=== PATIENT | male | born 1945 | race Caucasian/White ===

== ENCOUNTER 2019-09-18 01:46 | Inpatient (IN) | payer OTHER, MEDICARE ==
[~2019-09-18] VITALS: Ht 177.8 cm; Wt 57.7 kg
[~2019-09-18 01:46] MED LIST: ASPIRIN/DIPYRIDAMOLE PO; Aggrenox Capsu1 EACH PO; CLON1 PO; CYAN1000I IM; DIPATRL PO; Entocort EC 3 mg3 MG PO; FISH OIL + D31 EACH PO; GABA100 PO; HYDCHL25 PO; LOSARTAN-HCTZ1 EAC1 PO; Lomotil Tablet1 EACH PO; Lopressor 25 mg25 MG PO; MAGOXI400 PO; METO25ER PO; NORT25 PO; Omeprazole20 M1 PO; Prevalite Pac4 G/PKT PO; Questran4 GM PO
[2019-09-18 04:03] LABS: Mean Corpuscular HGB 27.1 pg (26.0-34.0); Mean Corpuscular HGB Conc 33.3 g/dL (31.5-36.5); Mean Corpuscular Volume 81 fL (80-100); Mean Platelet Volume 9.9 fL (9.1-12.4); Platelet Count 85 K/mm3 (150-400); RDW Coefficient Variation 19.2 % (11.7-14.2); RDW Standard Deviation 56.5 fL (35.1-46.3); Red Blood Cell Count 3.69 M/mm3 (4.30-5.90); White Blood Cell Count 1.84 K/mm3 (4.00-11.30)
[2019-09-18 04:21] LABS: Alanine Aminotransfer (ALT/SGP 25 U/L (12-78); Albumin/Globulin Ratio 0.7 (0.8-1.8); Alk Phos 105 U/L (50-136); Anion Gap 8 mmol/L (6-16); Aspartate Aminotrans (AST/SGOT 17 U/L (12-37); Bilirubin, Total 0.3 mg/dL (0.1-1.0); Blood Urea Nitrogen 16 mg/dL (8-24); Bun/Creatinine Ratio 20.4 (12.0-20.0); CO2, Blood 23 mmol/L (21-32); Calcium, Blood 8.6 mg/dL (8.5-10.1); Chloride, Blood 102 mmol/L (98-108); Creatinine, Blood 0.79 mg/dL (0.60-1.20); Globulin, Blood 4.1 g/dL (2.2-4.0); Glomerular Filtration Rate >60 (60-); Glucose, Blood 103 mg/dL (70-99); Magnesium, Blood 1.2 mg/dL (1.6-2.4); Potassium, Blood 3.4 mmol/L (3.5-5.5); Sodium, Blood 133 mmol/L (136-145); Total Protein, Blood 7.1 g/dL (6.4-8.2); Troponin I <0.015 ng/mL (0.000-0.040)
[2019-09-18 04:27] LABS: BAND PERCENT MAN 2 % (0-8); BASOPHILS ABSOLUTE MAN 0.01 K/mm3 (0.00-0.23); BASOPHILS PERCENT MAN 1 % (0-2); EOSINOPHILS PERCENT MAN 0 % (0-6); LYMPHOCYTES % ATYPICAL MANUAL 4 % (0-0); LYMPHOCYTES ABSOLUTE MAN 1.52 K/mm3 (0.84-5.20); LYMPHOCYTES PERCENT MAN 79 % (21-46); MONOCYTES ABSOLUTE MAN 0.16 K/mm3 (0.16-1.47); MONOCYTES PERCENT MAN 9 % (4-13); NEUTROPHILS ABSOLUTE MAN 0.12 K/mm3 (1.96-9.15); SEG NEUTROPHILS PERCENT MAN 5 % (41-73); TOTAL CELLS COUNTED 100
--- NOTE | 2019-09-18 10:44 | NUR ---
RECEIEVED REPORT FROM MARYBETH CLEMONS RN, AT 0855. PATIENT ARRIVE TO ROOM 335 AT 0910 BY LYLARWES AND TRANSFERED WITH ONE ASSIST TO HOSPITAL BED. ADMISSION ASSESSMENT COMPLETED ALONG WITH THE MED REQ WITH THE ASSISTANCE OF THE PATIENT. MEDS UPDATED AND NOTIFIED DR MAYFIELD OF CHANGES PER PATIENT. ORDER TO CHANGE MEDICATIONS TO EMAR TO REFLECT PATIENTS MED REQ GIVEN. PATIENT SITUATED IN ROOM RESTING. IV POTASSIUM AND MAGNESIUM INFUSING AT THIS TIME. WILL CONTINUE TO MONITOR.
--- NOTE | 2019-09-18 15:39 | NUR ---
SHIFT SUMMARY PATIENT HAS BEEN PLEASANT AND COOPERATIVE. INFUSED WITH MAGNESIUM AND POTASSIUM UPON ARRIVAL TO THE FLOOR PER EMAR. HAS COMPLAINED OF PAIN TWICE WITH EFFECTIVE RESULTS FROM REQUESTED PAIN MEDICATION. FEVER OF 101.9 NOTED AT AFTERNOON VITALS; OFFERED PATIENT TYLENOL AND HE WOULD ONLY TAKE 325MG OPPOSED TO THE FULL DOSE OF 650MG. WILL RECHECK TEMP. PATIENT AMBULATES WITH STEADY GAIT, NEEDS SOME ASSISTANCE WITH IV POLE. WILL CONTINUE TO MONITOR AND PROVIDE CARE NEEDED.
--- NOTE | 2019-09-18 17:40 | NUR ---
RECHECKED PATIENT TEMP A FEW TIMES. IT HAS COME DOWN TO 99.3
--- NOTE | 2019-09-19 04:06 | NUR ---
SHIFT SUMMARY: 74 Y/O MALE RESTED COMFORTABLY ALL SHIFT, C/O GENERALIZED PAIN RATED 6/10 WITH DILAUDID 0.6MG IVP GIVEN X 4 WITH RELIEF FELT, ALERT AND ORIENTED X 4, DENIES NAUSEA, NO STOOLS NOTED, VOIDING CLEAR YELLOW FLUID, HAPPY AND COOPERATIVE WITH STAFF, NEUTROPENIC ISOLATION MAINTAINED, BED LOW POSITION WITH CALL LIGHT AT SIDE.
[2019-09-19 05:12] LABS: BASOPHILS PERCENT AUTO 0 % (0-2); EOSINOPHILS ABSOLUTE AUTO 0.01 K/mm3 (0.00-0.68); EOSINOPHILS PERCENT AUTO 1 % (0-6); Hematocrit 25.3 % (37.0-53.0); Hemoglobin 8.4 g/dL (13.5-17.5); IMMATURE GRAN ABSOLUTE AUTO 0.04 K/mm3 (0.00-0.10); IMMATURE GRAN PERCENT AUTO 2 % (0-1); LYMPHOCYTES ABSOLUTE AUTO 1.21 K/mm3 (0.84-5.20); LYMPHOCYTES PERCENT AUTO 62 % (21-46); MONOCYTES ABSOLUTE AUTO 0.54 K/mm3 (0.16-1.47); MONOCYTES PERCENT AUTO 28 % (4-13); Mean Corpuscular HGB 27.3 pg (26.0-34.0); Mean Corpuscular HGB Conc 33.2 g/dL (31.5-36.5); Mean Corpuscular Volume 82 fL (80-100); Mean Platelet Volume 9.9 fL (9.1-12.4); NEUTROPHILS ABSOLUTE AUTO 0.16 K/mm3 (1.96-9.15); NEUTROPHILS PERCENT AUTO 8 % (41-73); NRBC ABSOLUTE 0.03 K/mm3 (0.00-0.02); NRBC Auto 1.5 /100 WBC (0.0-0.2); Platelet Count 134 K/mm3 (150-400); RDW Coefficient Variation 19.9 % (11.7-14.2); RDW Standard Deviation 59.2 fL (35.1-46.3); Red Blood Cell Count 3.08 M/mm3 (4.30-5.90); White Blood Cell Count 1.96 K/mm3 (4.00-11.30)
[2019-09-19 05:38] LABS: Anion Gap 7 mmol/L (6-16); Blood Urea Nitrogen 7 mg/dL (8-24); Bun/Creatinine Ratio 9.8 (12.0-20.0); CO2, Blood 26 mmol/L (21-32); Calcium, Blood 8.2 mg/dL (8.5-10.1); Chloride, Blood 103 mmol/L (98-108); Creatinine, Blood 0.72 mg/dL (0.60-1.20); Glomerular Filtration Rate >60 (60-); Glucose, Blood 90 mg/dL (70-99); Magnesium, Blood 1.4 mg/dL (1.6-2.4); Potassium, Blood 3.7 mmol/L (3.5-5.5); Sodium, Blood 136 mmol/L (136-145)
--- NOTE | 2019-09-19 14:43 | NUR ---
1330 Visit Initial Visit: Palliative Care Consult for AD/POLST and Symptom Management. Pt is A&O and reports 7/10 pain in his abdomen and legs. He reports pain in his abdomen is sharp and intermittent and pain in his legs/feet are constant and states they feel like they are /crampy feeling. Engaged in therapeutic conversation and discussed his cancer diagnosis. Pt reports Dr Mak visited earlier this AM. Pt reports feeling of having more questions. He reports that he is unsure if he wants to continue with any treatments and have surgery. Offered to contact Dr Mak and this RN can relay plan. Pt is agreeable. Called and spoke with Dr Mak and he reports plan is for Pt to continue with chemotherapy then have curative surgery by removing bladder. Relayed information back to Pt. Listened as Pt expresses uncertainy of this plan. Listened as Pt discussed his qualitity of life and states "I have a lot to think about". Discussed hospice as an option he chooses to not pursue treatment and surgery. Suggested he continued conversation with Dr River when he is discharged from hospital. Pt is agreeable. Discussed pain management and the frequent use of IV dilaudid. Pt is agreeable in taking something that may last longer. Discussed POLST with Pt. Educated on each section to complete. Educated on life sustaining measures including risk factors. Pt reports he will discuss with his before completing. No other concerns reported at this time. Spoke with bedside nurse Sheryl and discussed case. Called and spoke with Dr Blakely. Placed order for oxycodone 5mg tab PO Q 4 hours PRN, and Gabapentin 200mg TID per V/O from Dr Blakely. Palliative Care will remain available.
--- NOTE | 2019-09-19 16:22 | NUR ---
SHIFT SUMMARY PATIENT HAS BEEN HAVING BACK, ABDOMENAL, AND BLE PAIN ON AND OFF T/O THE SHIFT. IV PAIN MEDICATION GIVEN ON REQUEST WITH MODERATE RESULTS. DR MAYFIELD DISCONTINUED THE IV DILAUDID AND ORDERED THE PATIENT SCHEDULED GABAPENTIN AND PRN OXYCODONE TO WHICH HE REFUSED BOTH STATING THEY DON'T HELP HIS PAIN. PATIENT CONTINUES ON IV ABX AND IV MAGNESIUM WITHOUT S/SX ADVERSE REACTIONS NOTED OR REPORTED. PATIENT REMAINS IN ROOM ENTIRE SHIFT AND RESTS HOWEVER AMBULATES TO AND FROM THE BATHROOM NEEDED. THERE HAVE BEEN NO ACUTE CHANGES TO REPORT ON THIS SHIFT. WILL CONTINUE TO MONITOR AND PROVIDE CARE NEEDED.
[2019-09-20 05:14] LABS: Hematocrit 25.3 % (37.0-53.0); Hemoglobin 8.3 g/dL (13.5-17.5); Mean Corpuscular HGB 27.4 pg (26.0-34.0); Mean Corpuscular HGB Conc 32.8 g/dL (31.5-36.5); Mean Corpuscular Volume 84 fL (80-100); Mean Platelet Volume 10.3 fL (9.1-12.4); NRBC ABSOLUTE 0.07 K/mm3 (0.00-0.02); NRBC Auto 1.2 /100 WBC (0.0-0.2); Platelet Count 201 K/mm3 (150-400); RDW Coefficient Variation 20.7 % (11.7-14.2); RDW Standard Deviation 61.8 fL (35.1-46.3); Red Blood Cell Count 3.03 M/mm3 (4.30-5.90); White Blood Cell Count 6.08 K/mm3 (4.00-11.30)
[2019-09-20 05:44] LABS: BAND PERCENT MAN 15 % (0-8); BASOPHILS PERCENT MAN 0 % (0-2); EOSINOPHILS PERCENT MAN 0 % (0-6); LYMPHOCYTES ABSOLUTE MAN 2.12 K/mm3 (0.84-5.20); LYMPHOCYTES PERCENT MAN 35 % (21-46); METAMYELOCYTE ABSOLUTE MAN 0.24 K/mm3 (0.00-0.00); METAMYELOCYTE PERCENT MAN 4 % (0-0); MONOCYTES ABSOLUTE MAN 1.45 K/mm3 (0.16-1.47); MONOCYTES PERCENT MAN 24 % (4-13); MYELOCYTE ABSOLUTE MAN 0.12 K/mm3 (0.00-0.00); MYELOCYTE PERCENT MAN 2 % (0-0); NEUTROPHILS ABSOLUTE MAN 2.12 K/mm3 (1.96-9.15); SEG NEUTROPHILS PERCENT MAN 20 % (41-73); TOTAL CELLS COUNTED 100
--- NOTE | 2019-09-20 06:24 | NUR ---
SHIFT SUMMARY PATIENT UPSET THAT PAIN MEDICATION WAS CHANGED WITHOUT THE PHYSICIAN SPEAKING TO HIM ABOUT THE CHANGES. PATIENT APPEARS ANXIOUS BUT REFUSES PRESCRIBED KLONOPIN AFTER TAKING OXYCODONE BECAUSE HE IS CONCERNED ABOUT HIS RESPIRATIONS. SPOKE TO RN SURGERY ICU PHYSICIAN ABOUT PATIENTS PAIN NOT BEING CONTROLLED AND RECEIVED ORDER FOR 2 DOSES OF DILAUDID TO GET HIM THROUGH THE NIGHT. PATIENT USES URINAL AND CALLS APPROPRI. WILL CONTINUE TO MONITOR
--- NOTE | 2019-09-20 11:24 | NUR ---
Pt visit this AM. Pt resting in bed upon arrival. He reports 7/10 pain in his lower back. Listened as Pt expresses frustration over pain regimen change. Listened as Pt expresses frustration over his current health and stating everything has been piling up. Pt expresses frustration over [facility]. Validated Pt's concerns. Dr Welsh arrives and discusses plan with Pt. Pt is agreeable with plan and is more understanding of pain regimen change. Pt reports no other concerns at this time. Dr Welsh will also D/C neutropenic precautions and order bowel protocol. Spoke with bedside nurse Gisela and discussed case. Palliative Care will remain available.
--- NOTE | 2019-09-20 16:24 | NUR ---
SHIFT SUMMARY PT CONTINUES TO HAVE LOWER BACK PAIN AND MEDICATING NEEDED PER EMAR. PT'S DIET INCREASED FROM FULL LIQUID TO SOFT FOR DINNER. WILL MONITOR PT'S TOLERANCE OF SOFT DIET. PT HAS HAD NO COMPLAINTS OF NAUSEA. UP INDEPENDENTLY IN ROOM. IVF STOPPED THIS AFTERNOON. PLANS FOR PT TO DISCHARGE TOMORROW. NO ACUTE CHANGES THIS SHIFT. WILL CONTINUE TO MONITOR AND REPORT TO ONCOMING RN. CALL LIGHT IN REACH.
--- NOTE | 2019-09-21 06:21 | NUR ---
SHIFT SUMMARY NO ACUTE EVENTS OVERNIGHT. PATIENT PAIN BEING WELL CONTROLLED BY CURRENT PAIN MED REGIME. PATIENT UP AD DESTINY IN ROOM. VSS. AAOX4. WILL CONTINUE TO MONITOR AND REPORT TO DAYSHIFT.
[2019-09-21] MEDS ORDERED: METR500 PO (12:49)
--- NOTE | 2019-09-21 14:23 | NUR ---
SHIFT SUMMARY PT AWAKE THIS AM, DURING SHIFT REPORT, CONFUSED AND HALLUCINATING IN RM AND OUT TO ROSALES. ASSISTED PT BACK INTO AND REORIENTED. PT A LITTLE ANXIOUS AT START OF SHIFT, WAITING FOR D/C. PT CALMED DOWN WHEN BREAKFAST BROUGHT IN. PT'S TO WELL. DENIED NEEDS. DR WRIGHT TO TO SEE PT. D/C ORDERS PLACED; PT WANTING TO GO HOME. IV SITE D/C'D WNL. D/C INSTRUCTIONS GIVEN; PT REPORTED, "I CAN READ WHEN I GET HOME". PT ANXIOUS TO LEAVE SOON HE COULD. PT ASSISTED OUT TO CAR VIA W/C, BY COMMUNITY HEALTH PROGRAM COORDINATOR.
== END 2019-09-21 17:09 | disposition home or self-care (01) | DRG 392 ==
LOC: ER 01:46 → MEDS 08:14
PROVIDERS: Emergency Medicine; ADMIT Family Medicine
DX: K52.89 Other specified noninfective gastroenteritis and colitis (principal); D61.818 Other pancytopenia; E87.1 Hypo-osmolality and hyponatremia; K50.90 Crohn's disease, unspecified, without complications; C67.9 Malignant neoplasm of bladder, unspecified; E87.6 Hypokalemia; E83.42 Hypomagnesemia; I10 Essential (primary) hypertension; F41.8 Other specified anxiety disorders; F17.290 Nicotine dependence, other tobacco product, uncomplicated; Z92.21 Personal history of antineoplastic chemotherapy; Z88.0 Allergy status to penicillin; Z88.2 Allergy status to sulfonamides; Z88.8 Allergy status to other drugs, medicaments and biological substances; Z79.899 Other long term (current) drug therapy
CPT/HCPCS: 36415; 74176; 80048; 80053; 83690; 83735; 84484; 85025; 93005; 93010; 96365; 96375; 96376; 99285-25; A9270; J0692; J0696; J1170; J1447; J2405; J3475; J3480; J7050; J7120

== ENCOUNTER → 2019-10-04 | Outpatient (CLI) | payer OTHER ==
[~2019-10-04] MED LIST changes: +METR500 PO
[2019-10-04 12:38] LABS: BASOPHILS ABSOLUTE AUTO 0.02 K/mm3 (0.00-0.23); BASOPHILS PERCENT AUTO 0 % (0-2); EOSINOPHILS ABSOLUTE AUTO 0.01 K/mm3 (0.00-0.68); EOSINOPHILS PERCENT AUTO 0 % (0-6); Hematocrit 28.2 % (37.0-53.0); Hemoglobin 9.1 g/dL (13.5-17.5); IMMATURE GRAN ABSOLUTE AUTO 0.05 K/mm3 (0.00-0.10); IMMATURE GRAN PERCENT AUTO 1 % (0-1); LYMPHOCYTES ABSOLUTE AUTO 1.31 K/mm3 (0.84-5.20); LYMPHOCYTES PERCENT AUTO 25 % (21-46); MONOCYTES ABSOLUTE AUTO 0.45 K/mm3 (0.16-1.47); MONOCYTES PERCENT AUTO 8 % (4-13); Mean Corpuscular HGB 28.3 pg (26.0-34.0); Mean Corpuscular HGB Conc 32.3 g/dL (31.5-36.5); Mean Corpuscular Volume 88 fL (80-100); NEUTROPHILS PERCENT AUTO 66 % (41-73); Platelet Count 105 K/mm3 (150-400); RDW Coefficient Variation 22.2 % (11.7-14.2); RDW Standard Deviation 69.6 fL (35.1-46.3); Red Blood Cell Count 3.22 M/mm3 (4.30-5.90); White Blood Cell Count 5.34 K/mm3 (4.00-11.30)
[2019-10-04 12:48] LABS: Alanine Aminotransfer (ALT/SGP 24 U/L (12-78); Albumin, Blood 2.9 g/dL (3.4-5.0); Albumin/Globulin Ratio 0.8 (0.8-1.8); Alk Phos 85 U/L (50-136); Anion Gap 7 mmol/L (6-16); Aspartate Aminotrans (AST/SGOT 24 U/L (12-37); Bilirubin, Total 0.2 mg/dL (0.1-1.0); Blood Urea Nitrogen 16 mg/dL (8-24); Bun/Creatinine Ratio 21.8 (12.0-20.0); CO2, Blood 28 mmol/L (21-32); Calcium, Blood 8.3 mg/dL (8.5-10.1); Chloride, Blood 105 mmol/L (98-108); Creatinine, Blood 0.73 mg/dL (0.60-1.20); Globulin, Blood 3.6 g/dL (2.2-4.0); Glomerular Filtration Rate >60 (60-); Glucose, Blood 133 mg/dL (70-99); Potassium, Blood 3.4 mmol/L (3.5-5.5); Sodium, Blood 140 mmol/L (136-145); Total Protein, Blood 6.5 g/dL (6.4-8.2)
== END | disposition home or self-care (01) ==
LOC: LAB 11:52 → LAB SHORT 11:52
PROVIDERS: Registered Nurse Oncology
DX: C67.9 Malignant neoplasm of bladder, unspecified (principal)
CPT/HCPCS: 80053; 85025

== ENCOUNTER 2020-01-11 06:43 | Day surgery (SDC) | payer OTHER ==
[~2020-01-11] VITALS: Ht 180.3 cm; Wt 63.0 kg
[~2020-01-11 06:43] MED LIST changes: +Anti-Diarrheal2 MG PO; +HYDROCODONE-AC1 EACH PO; +METO25 PO
--- NOTE | 2020-01-11 14:39 | NUR ---
LEFT GROIN SITE SOFT, NONTENDER, AND WITHOUT HEMATOMA. PT HOB HAS BEEN ELAVATED FOR ABOUT 45 MINUTES. PT UP TO BATHROOM, GROIN SITE STABLE. UP AND WALKED IN RECOVERY ROOM, BACK TO BED. SITTING DOWN, GROIN SITE STABLE. RESTED FOR ABOUT 15 MINUTES, STOOD UP TO GET DRESSED. PT STARTED TO C/O PAIN AT GROIN SITE, HEMATOMA NOTED. PRESSURE HELD AT SITE UNTIL SOFT. NOTIFIED.
--- NOTE | 2020-01-11 15:47 | NUR ---
pt groin site soft, nontender, no hematoma noted. up walking in recovery, dressed. site remains stable. pt discharge gone over with him and family, all verbalize understanding of instructions. instructred on how to apply firm pressure if bleeding should occur. saline lock out with catheter intact. pt to private vehicle per escort per w/c.
== END 2020-01-11 15:30 | disposition home or self-care (01) ==
LOC: MHTC 06:43
DX: I70.213 Atherosclerosis of native arteries of extremities with intermittent claudication, bilateral legs (principal); Z88.0 Allergy status to penicillin; Z88.2 Allergy status to sulfonamides; Z88.1 Allergy status to other antibiotic agents; Z88.8 Allergy status to other drugs, medicaments and biological substances
CPT/HCPCS: 37220; 37225; 75625; 75710; 75716; 75774; 76937; 85347; 99152; 99153; C1714; C1725; C1769; C1884; C1887; C1894; C2623; J1200; J1644; J2060; J2250; J3010; J7030; Q9967

== ENCOUNTER 2020-01-24 08:20 | Day surgery (SDC) | payer OTHER ==
[~2020-01-24] VITALS: Ht 180.3 cm; Wt 58.0 kg
--- NOTE | 2020-01-24 15:23 | NUR ---
1500 DR. GRIGGS AT THE BEDSIDE AND SPOKE WITH THE AND FAMILY. ALL QUESTIONS ASKED. PATIENT ASSISTED WITH VOIDING (URINAL) AND THEN TRAY SET UP FOR TO ASSIST PATIENT WITH MEAL. NO C/O PAIN.
--- NOTE | 2020-01-24 16:52 | NUR ---
[address] GRIGGS AND PATIENT NEED TO START ON PLAVIX. 75 MG ORALLY GIVEN NOW AND SCRIPT WRITTEN FOR TO TAKE TO THE PHARMD.
--- NOTE | 2020-01-24 17:23 | NUR ---
1700 PATIENT UP AND ASSITED WITH DRESSING. SLOW MOVING BUT NO COMPLAINTS OF PAIN. DRESSING TO LEFT FOOT CDI WITH FAHAD PATCHA ND TEGADERM INTACT. TR BAND REMOVED FROM THE LEFT RADIAL AND CLEANED SITE. CLOTH DOT PLACED TO THE PUNCTURE SITE AND CARE REVIEWED WITH THE PATIENT AND .
--- NOTE | 2020-01-24 17:25 | NUR ---
1710 REVIEWED DISCHARGE INSTRUCTIONS WITH PATIENT AND AND ALL QUESTIONS ANSWERED. ALL BELONGSING RETAINED BY THE PATIENT. PATIENT WAS GIVEN PLAVIX 75 MG ORAL THIS EVENING AND SENT HOME WITH A HAND CARRIED PRESCRIPTION. PATEINT UNDERSTANDS NOT TO USE THE LEFT WRIST OR LIFT WITH THE LEFT WRIST. PATIENT KIERRA FILL PRESCRIPTION TOMORROW AND KEEP FOLLOW UP APPOINTMENT NOTED. PATIENT UNDERSTANDS THAT HE WILL BE CALLED BY THE OFFICE TO RETURN AT A LATER DATE FOR DR. GRIGGS TO WORK ON THE RIGHT LEG. NO FURTHER QUESTIONS. PATIENT PLACED IN A WHEELCHAIR AND ESCOTED TO PRIVATE VEHICLE WITH AND FAMILY.
== END 2020-01-24 17:20 | disposition home or self-care (01) ==
LOC: MHTC 08:20
DX: I70.213 Atherosclerosis of native arteries of extremities with intermittent claudication, bilateral legs (principal); I10 Essential (primary) hypertension; F17.210 Nicotine dependence, cigarettes, uncomplicated; F41.9 Anxiety disorder, unspecified; Z88.0 Allergy status to penicillin; Z88.2 Allergy status to sulfonamides; Z88.8 Allergy status to other drugs, medicaments and biological substances; Z91.013 Allergy to seafood; Z79.899 Other long term (current) drug therapy
CPT/HCPCS: 37221; 37223; 37226; 37252; 75710; 75716; 76937; 99152; 99153; A9270-GY; C1725; C1753; C1769; C1874; C1876; C1887; C1894; C2623; J0360; J1200; J1644; J2060; J2250; J3010; J7030; Q9967

== ENCOUNTER 2020-02-17 14:25 | Inpatient (IN) | payer OTHER, MEDICARE ==
[~2020-02-17] VITALS: Ht 177.8 cm; Wt 56.8 kg
[2020-02-17] MEDS ORDERED: PLAVIX75 MG PO (15:06)
[2020-02-17 15:12] LABS: BASOPHILS ABSOLUTE AUTO 0.03 K/mm3 (0.00-0.23); BASOPHILS PERCENT AUTO 0 % (0-2); EOSINOPHILS ABSOLUTE AUTO 0.09 K/mm3 (0.00-0.68); EOSINOPHILS PERCENT AUTO 1 % (0-6); Hemoglobin 13.5 g/dL (13.5-17.5); IMMATURE GRAN ABSOLUTE AUTO 0.06 K/mm3 (0.00-0.10); IMMATURE GRAN PERCENT AUTO 1 % (0-1); LYMPHOCYTES ABSOLUTE AUTO 1.37 K/mm3 (0.84-5.20); LYMPHOCYTES PERCENT AUTO 17 % (21-46); MONOCYTES ABSOLUTE AUTO 0.74 K/mm3 (0.16-1.47); MONOCYTES PERCENT AUTO 9 % (4-13); Mean Corpuscular HGB 33.8 pg (26.0-34.0); Mean Corpuscular HGB Conc 32.9 g/dL (31.5-36.5); Mean Corpuscular Volume 103 fL (80-100); Mean Platelet Volume 9.9 fL (9.1-12.4); NEUTROPHILS ABSOLUTE AUTO 5.63 K/mm3 (1.96-9.15); NEUTROPHILS PERCENT AUTO 71 % (41-73); Platelet Count 158 K/mm3 (150-400); RDW Coefficient Variation 13.8 % (11.7-14.2); RDW Standard Deviation 52.6 fL (35.1-46.3); White Blood Cell Count 7.92 K/mm3 (4.00-11.30)
[2020-02-17 15:28] LABS: Alanine Aminotransfer (ALT/SGP 23 U/L (12-78); Albumin, Blood 3.9 g/dL (3.4-5.0); Alk Phos 126 U/L (50-136); Anion Gap 5 mmol/L (6-16); Aspartate Aminotrans (AST/SGOT 17 U/L (12-37); Bilirubin, Total 0.4 mg/dL (0.1-1.0); Blood Urea Nitrogen 18 mg/dL (8-24); Bun/Creatinine Ratio 24.9 (12.0-20.0); CO2, Blood 28 mmol/L (21-32); Calcium, Blood 9.3 mg/dL (8.5-10.1); Chloride, Blood 104 mmol/L (98-108); Creatinine, Blood 0.72 mg/dL (0.60-1.20); Glomerular Filtration Rate >60 (60-); Glucose, Blood 91 mg/dL (70-99); Potassium, Blood 3.9 mmol/L (3.5-5.5); Sodium, Blood 137 mmol/L (136-145); Total Protein, Blood 7.9 g/dL (6.4-8.2)
[2020-02-17] MEDS ORDERED: TOPROL XL25 MG PO (20:01)
[2020-02-17] MEDS ORDERED: BUDESONIDE EC3 MG PO (20:02)
[2020-02-17] MEDS ORDERED: B-121000 MC3 IM (20:02)
[2020-02-17] MEDS ORDERED: CLONAZEPAM1 MG PO (20:02)
--- NOTE | 2020-02-18 00:19 | NUR ---
ADMIT NOTE PATIENT ADMITTED FROM THE ER. PATIENT SETTLED IN AND ORIENTED TO THE ROOM, UNIT, AND CALL LIGHT. PATIENT MEDICATED FOR PAIN IN RIGHT FOOT PER EMAR. PATIENT REFUSING FOR BANDAGE TO BE REMOVED FROM RIGHT FOOT AT THIS TIME, SO RN UNABLE TO ASSESS FOOT AND PICTURES ARE UNABLE TO BE OBTAINED AT THIS TIME. WILL CONTINUE TO ATTMEPT TO ASSESS RIGHT FOOT. DR NOTIFIED OF PATIENT'S PAIN, ORDERES RECEIVED. HEPARIN GTT RUNNING PER ORDERS. WILL CONTINUE TO MONITOR PATIENT AND REPORT TO ONCOMING RN.
[2020-02-18 04:23] LABS: BASOPHILS ABSOLUTE AUTO 0.02 K/mm3 (0.00-0.23); BASOPHILS PERCENT AUTO 0 % (0-2); EOSINOPHILS ABSOLUTE AUTO 0.07 K/mm3 (0.00-0.68); EOSINOPHILS PERCENT AUTO 1 % (0-6); Hematocrit 36.4 % (37.0-53.0); IMMATURE GRAN ABSOLUTE AUTO 0.04 K/mm3 (0.00-0.10); IMMATURE GRAN PERCENT AUTO 1 % (0-1); LYMPHOCYTES ABSOLUTE AUTO 1.92 K/mm3 (0.84-5.20); LYMPHOCYTES PERCENT AUTO 29 % (21-46); MONOCYTES ABSOLUTE AUTO 0.79 K/mm3 (0.16-1.47); MONOCYTES PERCENT AUTO 12 % (4-13); Mean Corpuscular HGB 33.3 pg (26.0-34.0); Mean Corpuscular Volume 101 fL (80-100); Mean Platelet Volume 9.9 fL (9.1-12.4); NEUTROPHILS ABSOLUTE AUTO 3.81 K/mm3 (1.96-9.15); NEUTROPHILS PERCENT AUTO 57 % (41-73); Platelet Count 145 K/mm3 (150-400); RDW Standard Deviation 51.4 fL (35.1-46.3); White Blood Cell Count 6.65 K/mm3 (4.00-11.30)
[2020-02-18 04:45] LABS: Alanine Aminotransfer (ALT/SGP 132 U/L (12-78); Albumin, Blood 3.1 g/dL (3.4-5.0); Albumin/Globulin Ratio 0.8 (0.8-1.8); Alk Phos 217 U/L (50-136); Anion Gap 6 mmol/L (6-16); Aspartate Aminotrans (AST/SGOT 219 U/L (12-37); Bilirubin, Total 1.4 mg/dL (0.1-1.0); Blood Urea Nitrogen 17 mg/dL (8-24); Bun/Creatinine Ratio 19.8 (12.0-20.0); CO2, Blood 27 mmol/L (21-32); Calcium, Blood 8.6 mg/dL (8.5-10.1); Chloride, Blood 107 mmol/L (98-108); Creatinine, Blood 0.86 mg/dL (0.60-1.20); Globulin, Blood 3.7 g/dL (2.2-4.0); Glomerular Filtration Rate >60 (60-); Glucose, Blood 94 mg/dL (70-99); Potassium, Blood 3.7 mmol/L (3.5-5.5); Sodium, Blood 140 mmol/L (136-145); Total Protein, Blood 6.8 g/dL (6.4-8.2)
--- NOTE | 2020-02-18 07:27 | NUR ---
SHIFT SUMMARY PATIENT MEDICATED FOR PAIN PER EMAR. PATIENT APPEARED TO NAP ON AND OFF THROUGHOUT THE REST OF THE NIGHT. PATIENT REQUESTED TO BE WOKEN UP LITTLE POSSIBLE WHEN HE FELL ASLEEP. PATIENT ALSO REQUESTED TO NOT HAVE BEDSIDE REPORT DONE THIS AM. PATIENT CURRENTLY APPEARS TO BE ASEEP AT THIS TIME. REPORT GIVEN TO DONTRELL ADAMES.
--- NOTE | 2020-02-18 18:45 | NUR ---
PCU SHIFT SUMMARY PATIENT ALERT AND ORIENTED X4 T/O SHIFT. PATIENT SBA TO BEDSIDE COMMODE. ULCERS NOTED ON SIDES OF RIGHT FOOT. RIGHT CALF COOL UNDER KNEE AND DOWN TO TOES ON RIGHT SIDE (WARM ON LEFT). PATIENT KEPT NPO FOR REVASCULARIZATION FROM MD GRIGGS. PATIENT ON ROOM AIR. VSS. PATIENT EDUCATED ON SMOKING CESSATION. AT APPROX 1840 PATIENT LEFT UNIT FOR LINUX SECURITY ADMINISTRATOR. WILL REPORT TO NOC SHIFT RN.
--- NOTE | 2020-02-18 19:30 | NUR ---
PATIENT OUT AT PROCEDURE AT THIS TIME.
--- NOTE | 2020-02-18 22:08 | NUR ---
ARRIVED BACK FROM PROCEDURE SETTLED BACK IN BED, CORRESPONDENCE CLERK RN'S PROVIDED REPORT. NO BLEEDING NOTED TO SITE ON RIGHT FOOT ACCESS SITE.
[2020-02-18 23:36] LABS: International Normalized Ratio 1.04; Prothrombin Time Results 11.1 Sec (9.7-11.5)
[2020-02-19 06:21] LABS: BASOPHILS ABSOLUTE AUTO 0.02 K/mm3 (0.00-0.23); BASOPHILS PERCENT AUTO 0 % (0-2); EOSINOPHILS ABSOLUTE AUTO 0.09 K/mm3 (0.00-0.68); EOSINOPHILS PERCENT AUTO 1 % (0-6); Hematocrit 36.3 % (37.0-53.0); Hemoglobin 12.2 g/dL (13.5-17.5); IMMATURE GRAN ABSOLUTE AUTO 0.04 K/mm3 (0.00-0.10); IMMATURE GRAN PERCENT AUTO 1 % (0-1); LYMPHOCYTES ABSOLUTE AUTO 1.31 K/mm3 (0.84-5.20); LYMPHOCYTES PERCENT AUTO 18 % (21-46); MONOCYTES ABSOLUTE AUTO 0.64 K/mm3 (0.16-1.47); MONOCYTES PERCENT AUTO 9 % (4-13); Mean Corpuscular HGB Conc 33.6 g/dL (31.5-36.5); Mean Corpuscular Volume 101 fL (80-100); NEUTROPHILS ABSOLUTE AUTO 5.24 K/mm3 (1.96-9.15); NEUTROPHILS PERCENT AUTO 72 % (41-73); Platelet Count 154 K/mm3 (150-400); RDW Coefficient Variation 14.2 % (11.7-14.2); RDW Standard Deviation 52.9 fL (35.1-46.3); Red Blood Cell Count 3.59 M/mm3 (4.30-5.90); White Blood Cell Count 7.34 K/mm3 (4.00-11.30)
[2020-02-19 06:37] LABS: Alanine Aminotransfer (ALT/SGP 199 U/L (12-78); Albumin, Blood 3.2 g/dL (3.4-5.0); Albumin/Globulin Ratio 0.9 (0.8-1.8); Alk Phos 284 U/L (50-136); Anion Gap 8 mmol/L (6-16); Aspartate Aminotrans (AST/SGOT 116 U/L (12-37); Bilirubin, Total 1.1 mg/dL (0.1-1.0); Blood Urea Nitrogen 14 mg/dL (8-24); CO2, Blood 25 mmol/L (21-32); Calcium, Blood 8.6 mg/dL (8.5-10.1); Chloride, Blood 107 mmol/L (98-108); Creatinine, Blood 0.74 mg/dL (0.60-1.20); Globulin, Blood 3.5 g/dL (2.2-4.0); Glomerular Filtration Rate >60 (60-); Glucose, Blood 88 mg/dL (70-99); Potassium, Blood 3.4 mmol/L (3.5-5.5); Sodium, Blood 140 mmol/L (136-145); Total Protein, Blood 6.7 g/dL (6.4-8.2)
[2020-02-19 07:07] LABS: HBSAG SCREEN Negative (Negative); HEP A AB, IGM Negative (Negative); HEP B CORE AB, IGM Negative (Negative); HEP C VIRUS AB <0.1 (0.0-0.9)
--- NOTE | 2020-02-19 07:24 | NUR ---
SHIFT SUMMARY PATIENT DROWSY FOR MOST OF THE NIGHT. PATIENT APPEARED SLIGHTLY CONFUSED AND FORGETFUL LAST NIGHT. BEING VERY DISORIENTED UPON WAKING UP AND REQUIRING REORIENTATION. BED ALARM ON FOR SAFETY DURING THIS TIME. AT APPROX 0500 PATIENT WOKE UP AND APPEARED ALERT AND ORIENTED AND BACK TO BASELINE MENTATION AT THIS TIME. PAIN MEDICATION GIVEN PER ORDERS. VITAL SIGNS CHARTED. REPORT GIVEN TO ONCOMING RN.
[2020-02-19] MEDS ORDERED: Aspir 8181 MG PO (12:04)
[2020-02-19] MEDS ORDERED: DOCU100 PO (12:05)
[2020-02-19] MEDS ORDERED: Anti-Diarrheal2 MG PO (12:05)
[2020-02-19] MEDS ORDERED: CILO100 PO (12:06)
[2020-02-19] MEDS ORDERED: SENN187 PO (12:06)
--- NOTE | 2020-02-19 12:47 | NUR ---
PCU DISCHARGE SUMMARY PATIENT LEFT UNIT VIA WHEELCHAIR. PATIENT AMBULATED 15 FEET TO WHEELCHAIR AND TOLERATED WELL. , SE, NOTIFIED THAT PATIENT WOULD BE DISCHARGING AND MEETING HER AT THE EMERGENCY ENTRANCE. PATIENT IN NO ACUTE DISTRESS. PEDAL SITE ON RIGHT FOOT STABLE WITH NO S/SX OF BLEEDING OR HEMATOMA. RESP E/U ON ROOM AIR. PATIENT EDUCATED ON DISCHARGE INSTRUCTIONS AND NEW MEDICATIONS AND POST REVASCULARIZATION PRECAUTIONS. PATIENT VERBALIZED UNDERSTANDING.
== END 2020-02-19 12:45 | disposition home or self-care (01) | DRG 271 ==
LOC: ER 14:25 → PCU 20:45 → VAS 02-24 07:00
PROVIDERS: Physician Assistant; Radiology Diagnostic Radiology; ADMIT Internal Medicine
PROC: 047C3DZ Dilation of Right Common Iliac Artery with Intraluminal Device, Percutaneous Approach (ICD-10-PCS; principal; 2020-02-18)
PROC: 04CK3ZZ Extirpation of Matter from Right Femoral Artery, Percutaneous Approach (ICD-10-PCS; 2020-02-18)
PROC: 047E3DZ Dilation of Right Internal Iliac Artery with Intraluminal Device, Percutaneous Approach (ICD-10-PCS; 2020-02-18)
PROC: 047K3DZ Dilation of Right Femoral Artery with Intraluminal Device, Percutaneous Approach (ICD-10-PCS; 2020-02-18)
PROC: 047K3Z1 Dilation of Right Femoral Artery using Drug-Coated Balloon, Percutaneous Approach (ICD-10-PCS; 2020-02-18)
PROC: B41DZZZ Fluoroscopy of Aorta and Bilateral Lower Extremity Arteries (ICD-10-PCS; 2020-02-18)
DX: I74.5 Embolism and thrombosis of iliac artery (principal); I74.3 Embolism and thrombosis of arteries of the lower extremities; K50.90 Crohn's disease, unspecified, without complications; I99.8 Other disorder of circulatory system; F17.210 Nicotine dependence, cigarettes, uncomplicated; R79.89 Other specified abnormal findings of blood chemistry; I10 Essential (primary) hypertension; F41.9 Anxiety disorder, unspecified; Z79.899 Other long term (current) drug therapy; Z79.02 Long term (current) use of antithrombotics/antiplatelets; Z79.891 Long term (current) use of opiate analgesic; Z79.52 Long term (current) use of systemic steroids; Z88.1 Allergy status to other antibiotic agents; Z88.0 Allergy status to penicillin; Z88.2 Allergy status to sulfonamides; Z88.8 Allergy status to other drugs, medicaments and biological substances
CPT/HCPCS: 0238T; 36140; 36415; 37221; 37223; 37227; 75625; 75710; 76705; 76937; 80053; 80074; 83605; 85025; 85347; 85610; 85730; 93005; 93010; 93926; 99152; 99153; 99284-25; A9270-GY; C1714; C1725; C1769; C1874; C1876; C1887; C1894; C2623; J1644; J2060; J2250; J3010; J7030; Q9967

== ENCOUNTER 2020-03-16 00:18 | Day surgery (SDC) | payer OTHER, MEDICARE ==
[~2020-03-16 00:18] MED LIST changes: +Aspir 8181 MG PO; +B-121000 MC3 IM; +BUDESONIDE EC3 MG PO; +CILO100 PO; +CLONAZEPAM1 MG PO; +DOCU100 PO; +PLAVIX75 MG PO; +SENN187 PO; +TOPROL XL25 MG PO
== END 2020-03-16 23:00 | disposition home or self-care (01) ==
LOC: WOUND 00:18
DX: L97.419 Non-pressure chronic ulcer of right heel and midfoot with unspecified severity (principal); S91.301D Unspecified open wound, right foot, subsequent encounter; I73.9 Peripheral vascular disease, unspecified; F17.200 Nicotine dependence, unspecified, uncomplicated; I10 Essential (primary) hypertension; Z79.02 Long term (current) use of antithrombotics/antiplatelets; Z79.899 Other long term (current) drug therapy

== ENCOUNTER 2020-03-23 00:44 | Day surgery (SDC) | payer OTHER, MEDICARE | END 2020-03-23 23:13 | disposition home or self-care (01) | LOC: WOUND 00:44 | DX: I73.9 Peripheral vascular disease, unspecified (principal); S91.302A Unspecified open wound, left foot, initial encounter; S91.301A Unspecified open wound, right foot, initial encounter; F17.200 Nicotine dependence, unspecified, uncomplicated; I10 Essential (primary) hypertension; F41.9 Anxiety disorder, unspecified; Z79.02 Long term (current) use of antithrombotics/antiplatelets; Z79.899 Other long term (current) drug therapy; X58.XXXA Exposure to other specified factors, initial encounter | CPT/HCPCS: G0463 ==

== ENCOUNTER 2020-03-30 00:23 | Day surgery (SDC) | payer OTHER | END 2020-03-30 22:42 | disposition home or self-care (01) | LOC: WOUND 00:23 | DX: S91.301A Unspecified open wound, right foot, initial encounter (principal); S91.302A Unspecified open wound, left foot, initial encounter; X58.XXXA Exposure to other specified factors, initial encounter; I73.9 Peripheral vascular disease, unspecified; I10 Essential (primary) hypertension; F17.200 Nicotine dependence, unspecified, uncomplicated; F41.9 Anxiety disorder, unspecified; Z79.01 Long term (current) use of anticoagulants; Z79.899 Other long term (current) drug therapy; Z79.82 Long term (current) use of aspirin | CPT/HCPCS: G0463 ==

== ENCOUNTER 2020-04-13 00:19 | Day surgery (SDC) | payer OTHER | END 2020-04-13 23:15 | disposition home or self-care (01) | LOC: WOUND 00:19 | DX: S91.301D Unspecified open wound, right foot, subsequent encounter (principal); I73.9 Peripheral vascular disease, unspecified; F17.200 Nicotine dependence, unspecified, uncomplicated; I10 Essential (primary) hypertension; F41.9 Anxiety disorder, unspecified; Z79.02 Long term (current) use of antithrombotics/antiplatelets; Z79.899 Other long term (current) drug therapy; Z79.82 Long term (current) use of aspirin | CPT/HCPCS: G0463 ==

== ENCOUNTER → 2020-07-25 | Outpatient (CLI) | payer OTHER ==
[~2020-07-25] MED LIST changes: +HYDR1TAB94 PO; +NEURONTIN300 MG PO; +PYRIDIUM200 MG PO
[2020-07-25 09:58] LABS: BASOPHILS ABSOLUTE AUTO 0.05 K/mm3 (0.00-0.23); BASOPHILS PERCENT AUTO 0 % (0-2); EOSINOPHILS ABSOLUTE AUTO 0.12 K/mm3 (0.00-0.68); EOSINOPHILS PERCENT AUTO 1 % (0-6); Hematocrit 39.2 % (37.0-53.0); Hemoglobin 13.4 g/dL (13.5-17.5); IMMATURE GRAN ABSOLUTE AUTO 0.13 K/mm3 (0.00-0.10); IMMATURE GRAN PERCENT AUTO 1 % (0-1); LYMPHOCYTES ABSOLUTE AUTO 1.72 K/mm3 (0.84-5.20); LYMPHOCYTES PERCENT AUTO 14 % (21-46); MONOCYTES ABSOLUTE AUTO 1.09 K/mm3 (0.16-1.47); MONOCYTES PERCENT AUTO 9 % (4-13); Mean Corpuscular HGB 34.7 pg (26.0-34.0); Mean Corpuscular HGB Conc 34.2 g/dL (31.5-36.5); Mean Corpuscular Volume 102 fL (80-100); Mean Platelet Volume 9.5 fL (9.1-12.4); NEUTROPHILS ABSOLUTE AUTO 9.18 K/mm3 (1.96-9.15); NEUTROPHILS PERCENT AUTO 75 % (41-73); Platelet Count 282 K/mm3 (150-400); RDW Coefficient Variation 14.4 % (11.7-14.2); Red Blood Cell Count 3.86 M/mm3 (4.30-5.90); White Blood Cell Count 12.29 K/mm3 (4.00-11.30)
== END | disposition home or self-care (01) ==
LOC: LAB EV 09:46 → LAB SHORT 09:46
PROVIDERS: Family Medicine
DX: N39.0 Urinary tract infection, site not specified (principal); Z86.2 Personal history of diseases of the blood and blood-forming organs and certain disorders involving the immune mechanism
CPT/HCPCS: 85025; 87077; 87086; 87186

== ENCOUNTER → 2020-10-29 | Outpatient (CLI) | payer OTHER ==
[~2020-10-29] MED LIST changes: +ALBU90OI INH; +CEFD300 PO; +CEPH500 PO; +CLON.5 PO; -CLONAZEPAM1 MG PO; +Colace250 MG PO; +LOMOTIL 2.5-0.1 EACH PO; +MEGE40T PO; +NITR100CA PO; +Nitrofurantoin100 M1 PO
[2020-10-29 14:20] LABS: Source, Urine Clean Catch
[2020-10-29 14:40] LABS: Appearance, Urine Hazy (Clear); Bilirubin, Urine Neg (Neg); Blood, Urine 5+ (Neg); Color, Urine Yellow (P-Yellow); Glucose Qualitative, Urine Neg (Neg); Ketones, Urine 1+ (Neg); Leukocyte Esterase, Urine 1+ (Neg); Nitrite, Urine Neg (Neg); Protein, Urine 3+ (Neg); Urobilinogen, Urine NORM (Normal)
[2020-10-29 14:51] LABS: Bacteria Mod /hpf; Red Blood Cells, Urine TNTC /hpf (0-2); Squamous Epithelial Cells Not Seen /hpf (Few)
== END | disposition home or self-care (01) ==
LOC: PLD 13:00 → LAB SHORT 13:00
PROVIDERS: Internal Medicine Hematology & Oncology
DX: C67.9 Malignant neoplasm of bladder, unspecified (principal)
CPT/HCPCS: 81001

== ENCOUNTER 2021-01-09 14:59 | Inpatient (IN) | payer OTHER, MEDICARE ==
[~2021-01-09] VITALS: Ht 177.8 cm; Wt 51.9 kg
[~2021-01-09 14:59] MED LIST changes: -ALBU90OI INH; -BUDESONIDE EC3 MG PO; -CEFD300 PO; -CEPH500 PO; -CLON.5 PO; -Colace250 MG PO; -LOMOTIL 2.5-0.1 EACH PO; -MEGE40T PO; -NEURONTIN300 MG PO; -NITR100CA PO; -Nitrofurantoin100 M1 PO; -PLAVIX75 MG PO; -TOPROL XL25 MG PO
[2021-01-09 15:52] LABS: BASOPHILS ABSOLUTE AUTO 0.03 K/mm3 (0.00-0.23); BASOPHILS PERCENT AUTO 0 % (0-2); EOSINOPHILS ABSOLUTE AUTO 0.11 K/mm3 (0.00-0.68); EOSINOPHILS PERCENT AUTO 1 % (0-6); Hematocrit 36.1 % (37.0-53.0); Hemoglobin 11.7 g/dL (13.5-17.5); IMMATURE GRAN ABSOLUTE AUTO 0.16 K/mm3 (0.00-0.10); IMMATURE GRAN PERCENT AUTO 1 % (0-1); LYMPHOCYTES ABSOLUTE AUTO 0.51 K/mm3 (0.84-5.20); LYMPHOCYTES PERCENT AUTO 3 % (21-46); MONOCYTES ABSOLUTE AUTO 1.69 K/mm3 (0.16-1.47); MONOCYTES PERCENT AUTO 9 % (4-13); Mean Corpuscular HGB 31.2 pg (26.0-34.0); Mean Corpuscular HGB Conc 32.4 g/dL (31.5-36.5); Mean Corpuscular Volume 96 fL (80-100); Mean Platelet Volume 9.6 fL (9.1-12.4); NEUTROPHILS ABSOLUTE AUTO 15.68 K/mm3 (1.96-9.15); NEUTROPHILS PERCENT AUTO 86 % (41-73); Platelet Count 269 K/mm3 (150-400); RDW Coefficient Variation 15.4 % (11.7-14.2); RDW Standard Deviation 54.3 fL (35.1-46.3); Red Blood Cell Count 3.75 M/mm3 (4.30-5.90); White Blood Cell Count 18.18 K/mm3 (4.00-11.30)
[2021-01-09 16:13] LABS: Source, Urine Voided
[2021-01-09 16:19] LABS: Base Excess Venous 1.2 mmol/L; Bicarbonate Venous 23.9 mmol/L (24.0-30.0); PCO2 Venous 51.8 mmHg (38-42); PO2 Venous 31.5 mmHg (38-42); pH Blood Venous 7.33 (7.34-7.37)
[2021-01-09 16:20] LABS: Alanine Aminotransfer (ALT/SGP 37 U/L (12-78); Albumin, Blood 2.7 g/dL (3.4-5.0); Albumin/Globulin Ratio 0.5 (0.8-1.8); Alk Phos 116 U/L (50-136); Anion Gap 6 mmol/L (6-16); Aspartate Aminotrans (AST/SGOT 24 U/L (12-37); Bilirubin, Total 0.5 mg/dL (0.1-1.0); Blood Urea Nitrogen 14 mg/dL (8-24); Bun/Creatinine Ratio 20.8 (12.0-20.0); CO2, Blood 28 mmol/L (21-32); Calcium, Blood 8.9 mg/dL (8.5-10.1); Chloride, Blood 101 mmol/L (98-108); Creatinine, Blood 0.67 mg/dL (0.60-1.20); Globulin, Blood 5.3 g/dL (2.2-4.0); Glomerular Filtration Rate >60 (60-); Glucose, Blood 126 mg/dL (70-99); Potassium, Blood 3.8 mmol/L (3.5-5.5); Sodium, Blood 135 mmol/L (136-145); Troponin I 0.024 ng/mL (0.000-0.040)
[2021-01-09 16:28] LABS: Appearance, Urine Cloudy (Clear); Blood, Urine 5+ (Neg); Color, Urine Amber (P-Yellow); Glucose Qualitative, Urine Neg (Neg); Ketones, Urine 1+ (Neg); Leukocyte Esterase, Urine 3+ (Neg); Nitrite, Urine Pos (Neg); Protein, Urine 3+ (Neg); Urobilinogen, Urine 1+ (Normal)
[2021-01-09 16:46] LABS: Bilirubin, Urine 1+ (Neg)
[2021-01-09 16:47] LABS: Bacteria Mod /hpf; Red Blood Cells, Urine TNTC /hpf (0-2); Squamous Epithelial Cells Few /hpf (Few); White Blood Cells, Urine TNTC /hpf (0-5)
[2021-01-09] MEDS ORDERED: TOPROL XL25 MG PO (17:14)
[2021-01-09] MEDS ORDERED: NITR100CA PO (17:14)
[2021-01-09] MEDS ORDERED: NEURONTIN300 MG PO (17:15)
[2021-01-09] MEDS ORDERED: PLAVIX75 MG PO (17:18)
[2021-01-09] MEDS ORDERED: BUDESONIDE EC3 MG PO (17:19)
[2021-01-09] MEDS ORDERED: CLON.5 PO (19:14)
[2021-01-09] MEDS ORDERED: LOMOTIL 2.5-0.1 EACH PO (19:15)
--- NOTE | 2021-01-10 02:42 | NUR ---
ADMIT NOTE PATIENT ADMITTED FROM THE ER AND SLID FROM THE BED TO THE RNEY VIA SLIDER SHEET. PAIENT SLIGHTLY IRRITABLE UPON ADMIT, PATIENT FRUSTRATED WITH HOW LONG HE HAD TO STAY DOWN IN ER. PATIENT'S PRESENT WHILE PATIENT WAS BEING SETTLED IN. PATIENT ORIENTED TO THE ROOM, UNIT, AND CALL LIGHT. PATIENT FRUSTRATED ABOUT NOT BEING ABLE TO GO TO BED AND KEPT ASKING WHEN HE WOULD BE LEFT ALONE SO THAT HE COULD SLEEP. PATIENT ALSO VERY FRUSTARTED THAT HE FEELS SO COLD. HEAT TURNED UP IN ROOM AND BLANKETS PROVIDED, HOWEVER DUE TO PATIENT'S TEMP CAUTION NEEDS TO BE USED WITH BLANKETS AND HEAT. PATIENT CONTINUES TO BE FRUSTRATED ABOUT FEELING COULD EVEN THOUGH RN EXPLAINED THAT PATIENT'S TEMP HAS BEEN ELEVATED AND THAT BLANKETS WOULD BE PROVIDED PATIENT'S TEMP TOLERATED IT. PATIENT CURRENTLY APPEARS TO BE RESTING IN BED, PATIENT APPEARS TO BE ABLE TO MOVE SELF ABOUT IN BED.
[2021-01-10 04:03] LABS: Hematocrit 31.7 % (37.0-53.0); Hemoglobin 10.3 g/dL (13.5-17.5); Mean Corpuscular HGB Conc 32.5 g/dL (31.5-36.5); Mean Corpuscular Volume 96 fL (80-100); Mean Platelet Volume 9.3 fL (9.1-12.4); Platelet Count 251 K/mm3 (150-400); RDW Coefficient Variation 15.7 % (11.7-14.2); RDW Standard Deviation 54.4 fL (35.1-46.3); Red Blood Cell Count 3.32 M/mm3 (4.30-5.90); White Blood Cell Count 24.38 K/mm3 (4.00-11.30)
[2021-01-10 04:19] LABS: Anion Gap 9 mmol/L (6-16); Blood Urea Nitrogen 12 mg/dL (8-24); Bun/Creatinine Ratio 18.8 (12.0-20.0); CO2, Blood 23 mmol/L (21-32); Calcium, Blood 8.4 mg/dL (8.5-10.1); Chloride, Blood 105 mmol/L (98-108); Creatinine, Blood 0.64 mg/dL (0.60-1.20); Glomerular Filtration Rate >60 (60-); Glucose, Blood 99 mg/dL (70-99); Potassium, Blood 3.3 mmol/L (3.5-5.5); Sodium, Blood 137 mmol/L (136-145)
[2021-01-10 04:28] LABS: BASOPHILS PERCENT MAN 0 % (0-2); EOSINOPHILS ABSOLUTE MAN 0.24 K/mm3 (0.00-0.68); EOSINOPHILS PERCENT MAN 1 % (0-6); LYMPHOCYTES ABSOLUTE MAN 0.48 K/mm3 (0.84-5.20); LYMPHOCYTES PERCENT MAN 2 % (21-46); MONOCYTES PERCENT MAN 7 % (4-13); NEUTROPHILS ABSOLUTE MAN 21.94 K/mm3 (1.96-9.15); SEG NEUTROPHILS PERCENT MAN 90 % (41-73); TOTAL CELLS COUNTED 100
--- NOTE | 2021-01-10 06:38 | NUR ---
SHIFT SUMMARY PATIENT APPEARS TO HAVE BEEN AWAKE MOST OF THE REST OF THE NIGHT SINCE ADMIT. PATIENT'S IV FLUIDS RUNNING PER ORDERS. PATIENT REPORTS FEELING SOB THIS MORNING AND REQUESTED A BREATHING TREATMENT, RESPIRTORY THERAPY NOTIFIED AND ARE CURRENTLY IN PATIENTS ROOM NOW PROVIDING TREATMENT. VITAL SIGNS CHARTED. WILL CONTINUE CURRENT PLAN OF CARE.
--- NOTE | 2021-01-10 13:08 | NUR ---
Spiritual care visit conducted. Patient is sitting up in bed and alert. Patient tells me about his medical history, his current issues and the plan of care moving forward. Patient shares about his Cat and how wonderful she has been especially in the midst of his medical ups and downs. Patient talks about a spiritual experience that he has had and personal struggles he is dealing with. I normalize his experience, reinforce helpful attitudes and practices and provide therapeutic listening, spiritual guidance and prayer. Patient responds well and shows signs of increased peace. I will continue to remain available to patient and family.
--- NOTE | 2021-01-10 13:54 | NUR ---
ADMIT: 01/09/21 DISCHARGE: DX: Severe Sepsis without septic shock CC: kwilcox CHELLE CALL: Cat Alvarez, , RESIDENCE: home with CAREGIVER: Cat Alvarez, , DX: prostate and bladder cancer, Crohn's disease, HTN, see list DME: none CCM: none HOME HEALTH: none SUMMARY:Admit: 01/09/21 01/10/21- Per chart review with Dr. Ocampo, pt has had temperature today. No est ETA for d/c at this time. -kjw
--- NOTE | 2021-01-10 18:04 | NUR ---
SHIFT SUMMARY NO ACUTE EVENTS THIS SHIFT, VSS. PATIENT DENIED CHEST PAIN/PRESSURE THIS SHIFT. COMPLAINED OF TIGHTNESS IN THROAT TO DR. GAY IN ROOM, LUNG SOUNDS CLEAR AND O2 SATS MAINTAINING IN MID TO HIGH 90S ON ROOM AIR. DR. GAY GAVE ORDERS FOR PRN PO ATIVAN. ATIVAN GIVEN PER EMAR, NO ADDITIONAL COMPLAINTS OF THROAT TIGHTNESS REST OF SHIFT. PATIENT ABLE TO TRANSFER FROM BED TO BEDSIDE COMMODE WITH STANDBY ASSIST FOR LINE MANAGEMENT. DRESSING CHANGED ON RIGHT FOREARM, NO NEW DISCHARGE NOTED AT SITE. PATIENT COOPERATIVE WITH CARE, REQUESTS PARTICULAR PLACEMENT ON ITEMS IN ROOM. ALL QUESTIONS ANSWERED BY THIS RN FOR PATIENT AND PATIENT'S SPOUSE REGARDING CURRENT ABX REGIMEN ORDERED AND INFORMATION REGARDING DEFINITIONS OF SEPSIS PROVIDED.
[2021-01-11 04:46] LABS: BASOPHILS ABSOLUTE AUTO 0.03 K/mm3 (0.00-0.23); BASOPHILS PERCENT AUTO 0 % (0-2); EOSINOPHILS ABSOLUTE AUTO 0.45 K/mm3 (0.00-0.68); EOSINOPHILS PERCENT AUTO 4 % (0-6); Hematocrit 28.6 % (37.0-53.0); Hemoglobin 9.3 g/dL (13.5-17.5); IMMATURE GRAN ABSOLUTE AUTO 0.13 K/mm3 (0.00-0.10); IMMATURE GRAN PERCENT AUTO 1 % (0-1); LYMPHOCYTES ABSOLUTE AUTO 0.97 K/mm3 (0.84-5.20); LYMPHOCYTES PERCENT AUTO 8 % (21-46); MONOCYTES ABSOLUTE AUTO 1.15 K/mm3 (0.16-1.47); MONOCYTES PERCENT AUTO 10 % (4-13); Mean Corpuscular HGB 30.9 pg (26.0-34.0); Mean Corpuscular HGB Conc 32.5 g/dL (31.5-36.5); Mean Corpuscular Volume 95 fL (80-100); Mean Platelet Volume 9.5 fL (9.1-12.4); NEUTROPHILS ABSOLUTE AUTO 9.35 K/mm3 (1.96-9.15); NEUTROPHILS PERCENT AUTO 78 % (41-73); Platelet Count 243 K/mm3 (150-400); RDW Coefficient Variation 15.8 % (11.7-14.2); RDW Standard Deviation 55.5 fL (35.1-46.3); Red Blood Cell Count 3.01 M/mm3 (4.30-5.90); White Blood Cell Count 12.08 K/mm3 (4.00-11.30)
--- NOTE | 2021-01-11 05:30 | NUR ---
SHIFT SUMMARY NO ACUTE CHANGES THIS SHIFT. VSS. REMAINS AXO, SOMEWHATANXIOUS. REMAINS IN SR. ON RA. PT HAS BEEN PLEASANT WITH THIS RN T/O SHIFT. PT OFF AND ON RESTING IN ROOM QUIETELY. USES CALL LIGHT. HAS HAD MULTIPLE FORMED BM'S, PT STATES THIS IS BASELINE CROHN'S BM'S FOR HIM. OTHERWISE, PT MAKING NEEDS KNOWN AND STATES BEING CONTEN. WILL CONTINUE TO MONITOR UNTIL SHIFT CHANGE.
[2021-01-11 05:50] LABS: Alanine Aminotransfer (ALT/SGP 34 U/L (12-78); Albumin, Blood 2.4 g/dL (3.4-5.0); Albumin/Globulin Ratio 0.6 (0.8-1.8); Alk Phos 86 U/L (50-136); Anion Gap 5 mmol/L (6-16); Aspartate Aminotrans (AST/SGOT 23 U/L (12-37); Bilirubin, Total 0.4 mg/dL (0.1-1.0); Blood Urea Nitrogen 14 mg/dL (8-24); Bun/Creatinine Ratio 23.8 (12.0-20.0); CO2, Blood 23 mmol/L (21-32); Calcium, Blood 8.5 mg/dL (8.5-10.1); Chloride, Blood 107 mmol/L (98-108); Creatinine, Blood 0.59 mg/dL (0.60-1.20); Globulin, Blood 4.3 g/dL (2.2-4.0); Glomerular Filtration Rate >60 (60-); Glucose, Blood 85 mg/dL (70-99); Potassium, Blood 3.9 mmol/L (3.5-5.5); Sodium, Blood 135 mmol/L (136-145); Total Protein, Blood 6.7 g/dL (6.4-8.2)
--- NOTE | 2021-01-11 16:56 | NUR ---
NO ACUTE EVENTS THIS SHIFT, VSS. PATIENT ON ROOM AIR WITH O2 SATS CONSISTENTLY IN MID-HIGH 90S. PATIENT ALERT AND ORIENTED, FORGETFUL REGARDING PLAN OF CARE AT TIMES. PATIENT WILL REPEATEDLY ASK QUESTIONS ABOUT THE TIMING OF ABX THROUGH THE SHIFT, AND IS IRRITABLE WHEN FEELING THE NEED TO RE-ASK QUESTIONS. PATIENT WORKED WITH PT/OT TODAY, INDEPENDENT IN ROOM AND STABLE WITH AMBULATION. DR. AGY NOTIFIED OF PATIENT'S REQUEST FOR SLEEP AIDE, ORDERS FOR PRN BEDTIME TRAZADONE TO START TONIGHT. PATIENT COMPLAINED OF LACK OF APPETITE, STARTED ON MEGESTROL THIS SHIFT. PATIENT REFUSED MEAL TRAYS THIS SHIFT, THIS RN OFFERED LIGHT FOODS INCLUDING CRACKERS, APPLESAUCE ETC. PATIENT ACCEPTED SOME CRACKERS THIS SHIFT.
--- NOTE | 2021-01-11 17:35 | NUR ---
REPORT GIVEN TO JD ADAMES ON SURGICAL.
--- NOTE | 2021-01-11 19:20 | NUR ---
SHIFT SUMMARY 1735 RECEIVED PT TO RM 208 FROM PCU 13. PT IS A&O, ABLE TO TX SELF TO BED [facility] ADMITTED FOR SEPSIS R/T UTI. PER REPORT, PT HAS HAD A UTI SINCE JUL, BEING TX OUTPT W/O RESULTS. PT WITH HX OF BLADDER CA CONRADO PROSTATE CA. LAST CHEMO/RADIATION WAS 1 WK AGO. PER REPORT, CT SHOWING NEW NODULE WITH METS TO THE LIVER. HX OF CROHNS; PT CURRENTLY WITH SM AMT OF DIARRHEA. HX OF HTN, ANXIETY. ATIVAN ORDERED BID. PER REPORT, PT DID NOT SLEEP WELL LAST NIGHT.; TRAZADONE AND KLONAPIN ALSO ORDERED. PT WANTING TO GO HOME IN AM. PER PT, HE DECLINED POSSIBLE D/C TODAY HE DID NOT WANT TO COME BACK TO HOSPITAL IF UTI NOT RESOLVED. IV ROCEPHIN INFUSING AT THIS TIME. REPORT GIVEN TO CARO ADAMES.
--- NOTE | 2021-01-12 04:28 | NUR ---
SHIFT SUMMARY PT RESTING WELL THIS SHIFT. AAOX4/ANXIOUS AT TIMES. PT DENIES DISCOMFORT/NAUSEA/EMESIS THIS SHIFT. DIARRHEA CONTINUES, IMODIUM X1 THIS SHIFT GIVEN. GOOD PO INTAKE + OUTPUT. NO ACUTE CHANGES OVER NIGHT. CURRENTLY PT RESTING WELL IN BED WITH CALL LIGHT IN REACH.
[2021-01-12] MEDS ORDERED: CEFD300 PO (11:13)
[2021-01-12] MEDS ORDERED: MEGE40T PO (11:15)
--- NOTE | 2021-01-12 11:30 | NUR ---
DISCHARGE SUMMARY PT A&OX4, VSS, LEFT FLOOR VIA WC WITH RN, TO GO HOME WITH , WITH ALL PERSONAL POSSESSIONS INCLUDING DC PACKET[facility]. DC INSTRUCTIONS PROVIDED. PT REP UNDERSTANDING THOSE INSTRUCTIONS. IV DC'D.
== END 2021-01-12 11:47 | disposition home or self-care (01) | DRG 872 ==
LOC: ER 14:59 → PCU 18:48 → SURS 01-11 17:54
PROVIDERS: Emergency Medicine; Internal Medicine; ADMIT Hospitalist
DX: A41.9 Sepsis, unspecified organism (principal); N39.0 Urinary tract infection, site not specified; C78.7 Secondary malignant neoplasm of liver and intrahepatic bile duct; K50.90 Crohn's disease, unspecified, without complications; Z66 Do not resuscitate; R65.20 Severe sepsis without septic shock; I10 Essential (primary) hypertension; F17.210 Nicotine dependence, cigarettes, uncomplicated; Z85.46 Personal history of malignant neoplasm of prostate; D47.3 Essential (hemorrhagic) thrombocythemia; J44.9 Chronic obstructive pulmonary disease, unspecified; F41.9 Anxiety disorder, unspecified; Z20.822 Contact with and (suspected) exposure to COVID-19
CPT/HCPCS: 36415; 71045; 71260; 80048; 80053; 81001; 82803; 83605; 83880; 84443; 84484; 85025; 87040; 93005; 93010; 94640; 94760; 96361; 96374-59; 97116; 97161; 97165; 97535; 99285-25; A9270; J0696; J1650; J7030; J7050; Q9967

== ENCOUNTER 2021-01-23 06:50 | Emergency (ER) | payer OTHER, MEDICARE ==
[~2021-01-23] VITALS: Ht 172.7 cm; Wt 68.0 kg
[~2021-01-23 06:50] MED LIST changes: +BUDESONIDE EC3 MG PO; +CEFD300 PO; +CLON.5 PO; +LOMOTIL 2.5-0.1 EACH PO; +MEGE40T PO; +NEURONTIN300 MG PO; +NITR100CA PO; +PLAVIX75 MG PO; +TOPROL XL25 MG PO
[2021-01-23] MEDS ORDERED: Nitrofurantoin100 M1 PO (07:06)
[2021-01-23 07:45] LABS: BASOPHILS ABSOLUTE AUTO 0.06 K/mm3 (0.00-0.23); BASOPHILS PERCENT AUTO 0 % (0-2); EOSINOPHILS ABSOLUTE AUTO 0.93 K/mm3 (0.00-0.68); EOSINOPHILS PERCENT AUTO 4 % (0-6); Hematocrit 38.1 % (37.0-53.0); Hemoglobin 12.5 g/dL (13.5-17.5); IMMATURE GRAN ABSOLUTE AUTO 0.17 K/mm3 (0.00-0.10); IMMATURE GRAN PERCENT AUTO 1 % (0-1); LYMPHOCYTES ABSOLUTE AUTO 1.07 K/mm3 (0.84-5.20); LYMPHOCYTES PERCENT AUTO 5 % (21-46); MONOCYTES ABSOLUTE AUTO 1.61 K/mm3 (0.16-1.47); MONOCYTES PERCENT AUTO 7 % (4-13); Mean Corpuscular HGB 30.4 pg (26.0-34.0); Mean Corpuscular HGB Conc 32.8 g/dL (31.5-36.5); Mean Corpuscular Volume 93 fL (80-100); Mean Platelet Volume 9.2 fL (9.1-12.4); NEUTROPHILS ABSOLUTE AUTO 18.06 K/mm3 (1.96-9.15); NEUTROPHILS PERCENT AUTO 82 % (41-73); Platelet Count 348 K/mm3 (150-400); RDW Coefficient Variation 15.6 % (11.7-14.2); RDW Standard Deviation 53.5 fL (35.1-46.3); Red Blood Cell Count 4.11 M/mm3 (4.30-5.90)
[2021-01-23 08:04] LABS: Alanine Aminotransfer (ALT/SGP 91 U/L (12-78); Albumin, Blood 2.8 g/dL (3.4-5.0); Albumin/Globulin Ratio 0.5 (0.8-1.8); Alk Phos 108 U/L (50-136); Anion Gap 10 mmol/L (6-16); Aspartate Aminotrans (AST/SGOT 40 U/L (12-37); Bilirubin, Total 0.4 mg/dL (0.1-1.0); Blood Urea Nitrogen 16 mg/dL (8-24); Bun/Creatinine Ratio 21.8 (12.0-20.0); CO2, Blood 24 mmol/L (21-32); Calcium, Blood 9.1 mg/dL (8.5-10.1); Chloride, Blood 99 mmol/L (98-108); Creatinine, Blood 0.74 mg/dL (0.60-1.20); Globulin, Blood 5.7 g/dL (2.2-4.0); Glomerular Filtration Rate >60 (60-); Glucose, Blood 106 mg/dL (70-99); Potassium, Blood 3.6 mmol/L (3.5-5.5); Sodium, Blood 133 mmol/L (136-145); Total Protein, Blood 8.5 g/dL (6.4-8.2); Troponin I <0.015 ng/mL (0.000-0.040)
[2021-01-23] MEDS ORDERED: CEPH500 PO (10:00)
--- NOTE | 2021-01-23 11:12 | NUR ---
ED Palliative Care Consult Spoke with Dr Kent and discussed case. Pt in ED due to reaction of anitbiotic his is taking. Pt has metastatic prostate cancer. Pt may benefit from Palliative Care visit. Pt resting on gurney upon arrival. Spouse at bedside. Pt denies pain at this time. Pt reports mild dyspnea and appears mildly anxious. Engaged in therapeutic discussion regarding his cancer diagnosis. Pt is known to this technical publications writer from previous hospital stay. Listened as Pt reports not seeing oncology or urologist in over 2 months. Pt expresses frustrations due to lack of communication between his providers. Continued therapeutic listening and anwered questions. Discussed hospice as an option and educated on hospice philosophy. Pt and spouse expresses appreciation of conversation with Pt reporting he will consider this option. Pt is requesting breathing treatment to help with his SOB and is requesting an inhaler be prescribed. Pt and spouse report no other concerns at this time. Spoke with Dr Kent and relayed Pt's request. Plan for Pt to D/C home. Palliative Care will remain available.
[2021-01-23] MEDS ORDERED: ALBU90OI INH (20:08)
[2021-01-23] MEDS ORDERED: HYDR1TAB94 PO (20:08)
[2021-01-23] MEDS ORDERED: Colace250 MG PO (20:08)
== END 2021-01-23 11:36 | disposition home or self-care (01) ==
LOC: ER 06:50
PROVIDERS: Emergency Medicine
DX: N39.0 Urinary tract infection, site not specified (principal); C61 Malignant neoplasm of prostate; C79.9 Secondary malignant neoplasm of unspecified site; I10 Essential (primary) hypertension; F17.200 Nicotine dependence, unspecified, uncomplicated; Z79.899 Other long term (current) drug therapy; Z79.02 Long term (current) use of antithrombotics/antiplatelets; Z79.52 Long term (current) use of systemic steroids; Z88.0 Allergy status to penicillin; Z88.2 Allergy status to sulfonamides; Z88.1 Allergy status to other antibiotic agents; Z88.8 Allergy status to other drugs, medicaments and biological substances
CPT/HCPCS: 36415; 71045; 71260; 80053; 83880; 84484; 85025; 85379; 93005; 93010; 96374; 96375; 99285-25; A9270; J1200; Q9967

== ENCOUNTER 2021-01-23 16:45 | Emergency (ER) | payer OTHER, MEDICARE ==
[~2021-01-23] VITALS: Ht 180.3 cm; Wt 72.6 kg
[~2021-01-23 16:45] MED LIST changes: +CEPH500 PO; +Nitrofurantoin100 M1 PO
[2021-01-23 17:16] LABS: BASOPHILS ABSOLUTE AUTO 0.07 K/mm3 (0.00-0.23); BASOPHILS PERCENT AUTO 0 % (0-2); EOSINOPHILS ABSOLUTE AUTO 1.22 K/mm3 (0.00-0.68); EOSINOPHILS PERCENT AUTO 5 % (0-6); Hematocrit 39.7 % (37.0-53.0); Hemoglobin 12.9 g/dL (13.5-17.5); IMMATURE GRAN ABSOLUTE AUTO 0.22 K/mm3 (0.00-0.10); IMMATURE GRAN PERCENT AUTO 1 % (0-1); LYMPHOCYTES PERCENT AUTO 4 % (21-46); MONOCYTES ABSOLUTE AUTO 1.97 K/mm3 (0.16-1.47); MONOCYTES PERCENT AUTO 8 % (4-13); Mean Corpuscular HGB 30.7 pg (26.0-34.0); Mean Corpuscular HGB Conc 32.5 g/dL (31.5-36.5); Mean Corpuscular Volume 95 fL (80-100); Mean Platelet Volume 9.4 fL (9.1-12.4); NEUTROPHILS PERCENT AUTO 82 % (41-73); Platelet Count 351 K/mm3 (150-400); RDW Coefficient Variation 15.7 % (11.7-14.2); RDW Standard Deviation 54.2 fL (35.1-46.3); White Blood Cell Count 24.18 K/mm3 (4.00-11.30)
[2021-01-23 17:47] LABS: Alanine Aminotransfer (ALT/SGP 83 U/L (12-78); Albumin, Blood 2.8 g/dL (3.4-5.0); Albumin/Globulin Ratio 0.5 (0.8-1.8); Alk Phos 109 U/L (50-136); Anion Gap 7 mmol/L (6-16); Aspartate Aminotrans (AST/SGOT 38 U/L (12-37); Bilirubin, Total 0.5 mg/dL (0.1-1.0); Blood Urea Nitrogen 12 mg/dL (8-24); Bun/Creatinine Ratio 17.9 (12.0-20.0); CO2, Blood 23 mmol/L (21-32); Calcium, Blood 9.2 mg/dL (8.5-10.1); Chloride, Blood 102 mmol/L (98-108); Creatinine, Blood 0.67 mg/dL (0.60-1.20); Globulin, Blood 5.8 g/dL (2.2-4.0); Glomerular Filtration Rate >60 (60-); Glucose, Blood 96 mg/dL (70-99); Potassium, Blood 4.2 mmol/L (3.5-5.5); Sodium, Blood 132 mmol/L (136-145); Total Protein, Blood 8.6 g/dL (6.4-8.2); Troponin I <0.015 ng/mL (0.000-0.040)
[2021-01-23 19:22] LABS: PCO2 Arterial 30.2 mmHg (35-45); PO2 Arterial 130 mmHg (80-100); pH Blood Arterial 7.47 (7.35-7.45)
[2021-01-23 19:42] LABS: Source, Urine Clean Catch
[2021-01-23 19:47] LABS: Appearance, Urine Hazy (Clear); Bilirubin, Urine Neg (Neg); Blood, Urine 5+ (Neg); Color, Urine Yellow (P-Yellow); Glucose Qualitative, Urine Neg (Neg); Ketones, Urine Neg (Neg); Leukocyte Esterase, Urine 3+ (Neg); Nitrite, Urine Neg (Neg); Protein, Urine 3+ (Neg); Urobilinogen, Urine NORM (Normal)
[2021-01-23 19:55] LABS: Bacteria Many /hpf; Red Blood Cells, Urine 25-50 /hpf (0-2); Squamous Epithelial Cells Not Seen /hpf (Few); White Blood Cells, Urine TNTC /hpf (0-5)
[2021-01-23] MEDS ORDERED: Colace250 MG PO (20:08)
[2021-01-23] MEDS ORDERED: HYDR1TAB94 PO (20:08)
[2021-01-23] MEDS ORDERED: ALBU90OI INH (20:08)
[2021-01-23 20:29] LABS: Influenza A, PCR NEGATIVE (NEGATIVE); Influenza B, PCR NEGATIVE (NEGATIVE); Resp Syncytial Virus, PCR NEGATIVE (NEGATIVE); SARS-Cov-2 (COVID-19) PCR, MMC NEGATIVE (NEGATIVE)
== END 2021-01-23 20:31 | disposition home or self-care (01) ==
LOC: ER 16:45
PROVIDERS: Emergency Medicine; Physician Assistant
DX: J44.9 Chronic obstructive pulmonary disease, unspecified (principal); C78.00 Secondary malignant neoplasm of unspecified lung; C22.8 Malignant neoplasm of liver, primary, unspecified as to type; I10 Essential (primary) hypertension; F17.210 Nicotine dependence, cigarettes, uncomplicated; Z20.822 Contact with and (suspected) exposure to COVID-19; Z88.0 Allergy status to penicillin; Z88.2 Allergy status to sulfonamides; Z88.1 Allergy status to other antibiotic agents; Z88.8 Allergy status to other drugs, medicaments and biological substances; Z79.02 Long term (current) use of antithrombotics/antiplatelets; Z79.52 Long term (current) use of systemic steroids; Z79.899 Other long term (current) drug therapy
CPT/HCPCS: 0241U; 36415; 36600; 80053; 81001; 82803; 84484; 85025; 87077; 87086; 87186; 93005; 93010; 94644; 99285-25